=== PATIENT | male | born 1950 | race Caucasian/White ===

== ENCOUNTER → 2020-11-27 | Outpatient (CLI) | payer BC ==
[~2020-11-27] MED LIST: DOXA2TAB9 PO; FINA5TAB4 PO; MULT-449 PO; Vitamin B12 PO; glucosamine PO
[2020-11-27 12:33] LABS: MICROSCOPIC NOT IND
== END | disposition home or self-care (01) ==
LOC: STAR 11:08
PROVIDERS: ATTEND Urology
DX: Z01.812 Encounter for preprocedural laboratory examination (principal); Z20.822 Contact with and (suspected) exposure to COVID-19; N40.1 Benign prostatic hyperplasia with lower urinary tract symptoms; R94.31 Abnormal electrocardiogram [ECG] [EKG]
CPT/HCPCS: 81003; 87086; 87635; 93005

== ENCOUNTER 2020-12-02 11:15 | Observation (INO) | payer BC ==
[~2020-12-02] VITALS: Ht 180.3 cm; Wt 122.0 kg
[2020-12-02] MEDS ORDERED: CHLORHEXIDINE 15 ML UDC ONE (11:44)
[2020-12-02] MEDS ORDERED: LACTATED RINGERS 1,000 ML IV SCH (12:00)
[2020-12-02] MEDS ORDERED: FENTANYL PF 100 MCG/2ML ONE ×2 (14:33→15:45)
[2020-12-02] MEDS ORDERED: PROPOFOL 10 MG/ML, 20ML ONE (14:33)
[2020-12-02] MEDS ORDERED: LIDOCAINE-MPF 2% ,5ML ONE (14:33)
[2020-12-02] MEDS ORDERED: CEFAZOLIN 1,000 MG ONE (14:49)
[2020-12-02] MEDS ORDERED: DEXAMETHASONE 4 MG/ML, 1ML ONE (14:58)
[2020-12-02] MEDS ORDERED: ACETAMINOPHEN 325 MG TABLET PO PRN (15:00)
[2020-12-02] MEDS ORDERED: FENTANYL PF 100 MCG/2ML IV PRN (15:00)
[2020-12-02] MEDS ORDERED: ONDANSETRON 2MG/ML, 2ML IVPush PRN (15:00)
[2020-12-02] MEDS ORDERED: OXYcodone 5 MG/5 ML ORAL.SOL UDC PO PRN (15:00)
[2020-12-02] MEDS ORDERED: ONDANSETRON 2MG/ML, 2ML ONE (15:39)
[2020-12-02] MEDS ORDERED: ONDANSETRON 2MG/ML, 2ML IV PRN (16:30)
[2020-12-02] MEDS ORDERED: OXYcodone/APAP 5/325MG TABLET PO PRN (16:30)
[2020-12-02 19:44] VITALS: BP 167/91
[2020-12-02] MEDS ORDERED: DOXAZOSIN 2MG TABLET PO SCH (21:00)
[2020-12-02] MEDS ORDERED: DIPHENHYDRAMINE 12.5MG/5ML, 10ML UDC PO PRN (22:00)
[2020-12-02] MEDS ORDERED: hydrALAzine 20 MG/ML, 1ML IV PRN (22:00)
[2020-12-02] MEDS ORDERED: DIPHENHYDRAMINE 50 MG CAPSULE PO PRN (22:30)
[2020-12-02 23:56] VITALS: BP 140/83
[2020-12-03 03:55] VITALS: BP 169/60
[2020-12-03] MEDS ORDERED: MULTIVITAMIN 1 TABLET PO SCH (09:00)
[2020-12-03] MEDS ORDERED: FINASTERIDE 5 MG TABLET PO SCH (09:00)
[2020-12-03] MEDS ORDERED: GLUCOSAMINE HOMEMEDPO SCH (09:00)
== END 2020-12-03 13:53 | disposition home or self-care (01) ==
LOC: OUT 11:15 → ORIP 16:02 → 4NE 18:55 → DCLOUNGE 12-03 13:46
PROVIDERS: ADMIT Urology; ATTEND Urology
DX: N40.1 Benign prostatic hyperplasia with lower urinary tract symptoms (principal); N13.8 Other obstructive and reflux uropathy; R31.0 Gross hematuria; R97.20 Elevated prostate specific antigen [PSA]; N52.9 Male erectile dysfunction, unspecified; N43.40 Spermatocele of epididymis, unspecified; I25.10 Atherosclerotic heart disease of native coronary artery without angina pectoris; K21.9 Gastro-esophageal reflux disease without esophagitis; Z90.79 Acquired absence of other genital organ(s); Z88.0 Allergy status to penicillin; Z87.891 Personal history of nicotine dependence; Z79.899 Other long term (current) drug therapy
CPT/HCPCS: 52601; 88305; G0378; J0690; J1100; J2405; J2704; J3010; J3490; J7120